=== PATIENT | female | born 1965 | race Two or more races ===

== ENCOUNTER 2019-06-10 17:41 | Emergency (ER) | payer MEDICAID, MEDICARE, OTHER ==
[~2019-06-10] VITALS: Ht 170.2 cm; Wt 90.7 kg
[~2019-06-10 17:41] MED LIST: ALBU18; ALLO300T2; AMLO5TAB13; DICL1.3D21; DICLTAB45; GABA300C PO; METH-532; PANTPAK PO; PREMARIN; PROVASTATIN; TRAM-297; [UNRECOGNIZED DRUG - CODE]
[2019-06-10 18:26] VITALS: BP 142/76
[2019-06-10] MEDS ORDERED: BACLOFEN 10 MG TAB PO ONE (19:00)
[2019-06-10] MEDS ORDERED: KETOROLAC TROMETH 60MG/2ML VIAL IM ONE (19:00)
[2019-06-10] MEDS ORDERED: TRIAMCINOLONE 40MG/ML 1ML VIAL IM ONE (19:00)
== END 2019-06-10 19:25 | disposition home or self-care (01) ==
LOC: EDBD 17:41 → ER 17:46
DX: M54.42 Lumbago with sciatica, left side (principal); M62.838 Other muscle spasm; M19.90 Unspecified osteoarthritis, unspecified site
CPT/HCPCS: 72100; 96372; 99283; J1885; J3301

== ENCOUNTER 2019-06-11 10:26 | Emergency (ER) | payer OTHER ==
[~2019-06-11] VITALS: Ht 167.6 cm; Wt 90.7 kg
[~2019-06-11 10:26] MED LIST changes: -AMLO5TAB13; +AMLO5TAB15
[2019-06-11 10:37] VITALS: BP 138/73
[2019-06-11] MEDS ORDERED: PROMETHAZINE HCL 25 MG/ML 1ML IM ONE (11:00)
[2019-06-11] MEDS ORDERED: HYDROmorphone HCL 2 MG/ML VL IM ONE (11:00)
== END 2019-06-11 12:46 | disposition home or self-care (01) ==
LOC: EDSEX 10:26 → EDBD 10:26 → ER 10:26
DX: M51.16 Intervertebral disc disorders with radiculopathy, lumbar region (principal); F41.9 Anxiety disorder, unspecified; M19.90 Unspecified osteoarthritis, unspecified site; Z79.899 Other long term (current) drug therapy
CPT/HCPCS: 96372; 99283; J1170; J2550

== ENCOUNTER 2019-06-13 22:41 | Emergency (ER) | payer OTHER ==
[~2019-06-13] VITALS: Ht 170.2 cm; Wt 99.8 kg
[2019-06-14 07:25] VITALS: BP 145/83
[2019-06-14] MEDS ORDERED: KETOROLAC TROMETH 60MG/2ML VIAL IM ONE (08:00)
[2019-06-14] MEDS ORDERED: CARISOPRODOL 350 MG TAB PO ONE (08:00)
== END 2019-06-14 11:32 | disposition home or self-care (01) ==
LOC: EDBD 22:41 → ER 22:48
DX: S33.5XXA Sprain of ligaments of lumbar spine, initial encounter (principal); M19.90 Unspecified osteoarthritis, unspecified site; J44.9 Chronic obstructive pulmonary disease, unspecified; E78.5 Hyperlipidemia, unspecified; I10 Essential (primary) hypertension; Z90.49 Acquired absence of other specified parts of digestive tract; Z79.899 Other long term (current) drug therapy; X58.XXXA Exposure to other specified factors, initial encounter; Y93.89 Activity, other specified; Y92.89 Other specified places as the place of occurrence of the external cause; Y99.8 Other external cause status
CPT/HCPCS: 96372; 99283; J1885